=== PATIENT | female | born 1970 | race African-American/Black ===

== ENCOUNTER → 2017-03-14 09:51 | Outpatient (CLI) | payer OTHER | LOC: D.MAMMO 09:51 | DX: Z85.3 Personal history of malignant neoplasm of breast (principal) ==

== ENCOUNTER 2018-07-21 17:06 | Outpatient (CLI) | payer BC | END 2018-07-21 23:59 | disposition home or self-care (01) | LOC: D.MAMMO 17:06 | DX: Z85.3 Personal history of malignant neoplasm of breast (principal) ==